=== PATIENT | male | born 1970 | race Hispanic/Latino ===

== ENCOUNTER 2022-09-07 17:14 | Emergency (ER) | payer OTHER ==
[~2022-09-07] VITALS: Ht 165.1 cm; Wt 83.0 kg
[2022-09-07 17:52] VITALS: BP 154/95
[2022-09-07] MEDS ORDERED: NAPROXEN500 MG PO (20:31)
== END 2022-09-07 21:10 | disposition home or self-care (01) | DRG 563 ==
LOC: ED 17:14
PROC: 0SSNXZZ Reposition Left Metatarsal-Phalangeal Joint, External Approach (ICD-10-PCS; principal; 2022-09-07)
DX: S93.122A Dislocation of metatarsophalangeal joint of left great toe, initial encounter (principal); I10 Essential (primary) hypertension; W11.XXXA Fall on and from ladder, initial encounter; Y93.89 Activity, other specified; Y92.74 Orchard as the place of occurrence of the external cause; Y99.0 Civilian activity done for income or pay